=== PATIENT | male | born 1985 | race Caucasian/White ===

== ENCOUNTER 2019-08-21 16:21 | Emergency (ER) | payer BC, OTHER ==
[2019-08-21] MEDS ORDERED: Lidocaine 1% 10 ML MDV INJECT ONE (16:33)
--- NOTE | 2019-08-21 16:34 | EDM.PDOC ---
ED HPI GENERAL MEDICAL PROBLEM - General Chief Complaint: Laceration Stated Complaint: THIGH LAC Time Seen by Provider: 08/21/19 16:30 Source of Information: Reports: Patient History Limitations: Reports: No Limitations - History of Present Illness INITIAL COMMENTS - FREE TEXT/NARRATIVE: Patient is a 33-year-old male who presents to the ER with complaints of a laceration to his right anterior thigh. 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 He is unsure when his last tetanus vaccination was. - Related Data Allergies Allergy/AdvReac Type Severity Reaction Status Date / Time No Known Allergies Allergy Verified 08/21/19 16:36 Home Meds: Home Meds . [No Known Home Meds] 06/19/15 [History] Past Medical History - Past Surgical History HEENT Surgical History: Reports: LASIK, Other (See Below) Social & Family History - Living Situation & Occupation Living situation: Reports: Occupation: Employed ED ROS GENERAL - Review of Systems Review Of Systems: Comprehensive ROS is negative, except as noted in HPI. ED EXAM, SKIN/RASH Exam: See Below Exam Limited By: No Limitations General Appearance: Alert, WD/WN, No Apparent Distress Respiratory/Chest: No Respiratory Distress, Lungs Clear, Normal Breath Sounds, No Accessory Muscle Use, Chest Non-Tender Cardiovascular: Normal Peripheral Pulses, Regular Rate, Rhythm, No Edema, No Gallop, No JVD, No Murmur, No Rub Neurological: Alert, Oriented, CN II-XII Intact, Normal Cognition, Normal Gait, Normal Reflexes, No Motor/Sensory Deficits Psychiatric: Normal Affect, Normal Mood Skin: Other (2.5 cm slightly gaping laceration to the dorsal right thigh. Scant active bleeding.) ED SKIN PROCEDURES - Laceration/Wound Repair Right Upper Leg Appearance: Subcutaneous Distal NVT: Neuro & Vascular Intact Anesthetic Type: Local Local Anesthesia - Lidocaine (Xylocaine): 1% Plain Local Anesthetic Volume: 2cc Skin Prep: Chlorhexidine (Hibiciens), Providone-Iodine (Betadine), Saline Exploration/Debridement/Repair: Wound Explored, No Foreign Material Found Closed with: Sutures Lac/Wound length In cm: 2.5 Suture Size: 4-0 # of Sutures: 2 Suture Type: Nylon Sterile Dressing Applied: Nurse Tetanus Status Addressed: Yes Complications: No Course - Vital Signs Last Recorded V/S: Last Vital Signs Temp 97.8 F 08/21/19 16:30 Pulse 81 08/21/19 16:30 Resp 16 08/21/19 16:30 BP 149/95 H 08/21/19 16:30 Pulse Ox 96 08/21/19 16:30 - Orders/Labs/Meds Orders: Active Orders 24 hr Category Date Time Status Vaccines to be Administered [RC] PER UNIT ROUTINE Care 08/21/19 17:06 Active Meds: Medications Discontinued Medications Generic Name Dose Route Start Last Admin Trade Name Angelica PRN Reason Stop Dose Admin Diphtheria/Tetanus/Acell Pertussis 0.5 ml 08/21/19 17:06 08/21/19 17:11 Adacel IM 08/21/19 17:07 0.5 ml .ONCE ONE Administration Lidocaine HCl 10 ml 08/21/19 16:33 08/21/19 16:48 Xylocaine 1% INJECT 08/21/19 16:34 10 ml ONETIME ONE Administration Departure - Departure Time of Disposition: 17:15 Disposition: Home, Self-Care 01 Condition: Good Clinical Impression: Laceration - Discharge Information *PRESCRIPTION DRUG MONITORING PROGRAM REVIEWED*: No *COPY OF PRESCRIPTION DRUG MONITORING REPORT IN PATIENT DAVONTE: No Instructions: Sutures, Keegan, or Adhesive Wound Closure, [id number] Referrals: PCP,None [Primary Care Provider] - Forms: ED Department Discharge Additional Instructions: You were seen in the emergency department today for a laceration to your right leg. The wound was cleansed and closed with 2 sutures. These should stay intact for 1 week and then may be removed in the clinic by any nurse. The wound should be kept clean and dry. You may wash twice daily with normal soap and water. Do not submerge the wound in water. Watch for signs of infection including increased redness, swelling, or purulent drainage. If this should occur, he should be seen by a provider in the clinic or the emergency department for antibiotics. Your tetanus vaccination was updated today and is good for 10 years. Sepsis Event Note - Focused Exam Vital Signs: Vital Signs Temp Pulse Resp BP Pulse Ox 08/21/19 16:30 97.8 F 81 16 149/95 H 96 Date Exam was Performed: 08/21/19 Time Exam was Performed: 17:18 - My Orders Last 24 Hours: My Active Orders 08/21/19 17:06 Vaccines to be Administered [RC] PER UNIT ROUTINE - Assessment/Plan Last 24 Hours: My Active Orders 08/21/19 17:06 Vaccines to be Administered [RC] PER UNIT ROUTINE
[2019-08-21 16:36] VITALS: BP 149/95; PULSE 81
[2019-08-21] MEDS ORDERED: Diphtheria,Pertussis(Acell),Tetanus Vaccine 0.5 ML Syringe IM ONE (17:06)
== END 2019-08-21 17:22 | disposition home or self-care (01) ==
LOC: JD.ED 16:21
DX: S71.111A Laceration without foreign body, right thigh, initial encounter (principal); Z23 Encounter for immunization; W27.8XXA Contact with other nonpowered hand tool, initial encounter
CPT/HCPCS: 12001; 90471; 90715; 99282; J2001

== ENCOUNTER 2025-02-17 15:23 | Emergency (ER) | payer BC ==
[2025-02-17 15:33] VITALS: BP 130/93; PULSE 86
[2025-02-17] MEDS: Ketorolac 30 MG/ML SDV IM ONE (15:42)
== END 2025-02-17 16:40 | disposition home or self-care (01) ==
LOC: JD.ED 15:23
DX: S52.572A Other intraarticular fracture of lower end of left radius, initial encounter for closed fracture (principal); Z79.899 Other long term (current) drug therapy; W11.XXXA Fall on and from ladder, initial encounter; Y93.89 Activity, other specified
CPT/HCPCS: 29125; 73110; 96372; 99283; J1885